=== PATIENT | male | born 1955 | race Caucasian/White ===

== ENCOUNTER 2020-03-16 11:26 | Emergency (ER) | payer MEDICARE, OTHER ==
--- NOTE | 2020-03-16 11:41 | ER Document Report ---
ED Medical Screen (RME) - General Chief Complaint: Urinary Problem Stated Complaint: URINARY ISSUE Time Seen by Provider: 03/16/20 11:32 Notes: Patient presents complaining of difficulty voiding for the past 5 days. Patient states that he will only void a little bit each day. Patient states that he has been taking Flomax although is not certain why he is on this. Patient states he may have prostate problems but is not certain. Patient complains of scrotal tenderness. No nausea or vomiting. Patient denies any abdominal tenderness. Patient does complain of lower back pain although denies flank tenderness. Patient does have a history of hypertension and dyslipidemia I have greeted and performed a rapid initial assessment of this patient. A comprehensive ED assessment and evaluation of the patient, analysis of test results and completion of the medical decision making process will be conducted by additional ED providers. - Related Data Allergies/Adverse Reactions: Penicillins Allergy (Verified 03/16/20 11:39) Physical Exam - Vital signs Vitals: Temp Pulse Resp BP Pulse Ox 98.1 F 75 16 177/103 H 98 03/16/20 11:30 03/16/20 11:30 03/16/20 11:30 03/16/20 11:30 03/16/20 11:30 - Back Back: Tender - Lower lumbar paraspinal tenderness. No: CVA tenderness Course - Vital Signs Vital signs: Temp Pulse Resp BP Pulse Ox 98.1 F 75 16 177/103 H 98 03/16/20 11:30 03/16/20 11:30 03/16/20 11:30 03/16/20 11:30 03/16/20 11:30
[2020-03-16 12:17] LABS: ABSOLUTE BASOPHILS # (AUTO) 0.1 10^3/uL (0.0-0.2); ABSOLUTE EOSINOPHILS # (AUTO) 0.1 10^3/uL (0.0-0.6); ABSOLUTE LYMPHOCYTES (AUTO) 1.5 10^3/uL (0.5-4.7); ABSOLUTE MONOCYTES (AUTO) 0.5 10^3/uL (0.1-1.4); ABSOLUTE NEUT (AUTO) 5.3 10^3/uL (1.7-8.2); BASOPHILS % (AUTO) 0.7 % (0-2); EOSINOPHILS % (AUTO) 1.2 % (0-6); HEMATOCRIT 51.5 % (37.9-51.0); HEMOGLOBIN 17.7 g/dL (13.5-17.0); LYMPHOCYTES % (AUTO) 20.2 % (13-45); MEAN CORPUSCULAR HEMOGLOBIN 31.8 pg (27.0-33.4); MEAN CORPUSCULAR HGB CONC 34.3 g/dL (32.0-36.0); MEAN CORPUSCULAR VOLUME 93 fl (80-97); MONOCYTES % (AUTO) 6.5 % (3-13); PLATELET COUNT 264 10^3/uL (150-450); RED BLOOD COUNT 5.56 10^6/uL (4.35-5.55); RED CELL DISTRIBUTION WIDTH 13.3 % (11.5-14.0); SEGMENTED NEUTROPHILS % (AUTO) 71.4 % (42-78); TOTAL CELLS COUNTED % (AUTO) 100 %; WHITE BLOOD COUNT 7.4 10^3/uL (4.0-10.5)
[2020-03-16 12:24] LABS: APPEARANCE,URINE SLIGHTLY-CLOUDY; BILIRUBIN,URINE NEGATIVE (NEGATIVE); COLOR,URINE YELLOW; GLUCOSE, URINE NEGATIVE (NEGATIVE); KETONES,URINE NEGATIVE (NEGATIVE); LEUKOCYTE ESTERASE,URINE MODERATE (NEGATIVE); NITRITE,URINE NEGATIVE (NEGATIVE); PROTEIN,URINE 100 mg/dL (NEGATIVE); URINE SPECIFIC GRAVITY 1.023
[2020-03-16 12:44] LABS: ALBUMIN 4.9 g/dL (3.5-5.0); ALKALINE PHOSPHATASE 112 U/L (38-126); ANION GAP 8 (5-19); ASPARTATE AMINO TRANSFERASE 48 U/L (17-59); BLOOD UREA NITROGEN 11 mg/dL (7-20); CALCIUM 10.1 mg/dL (8.4-10.2); CARBON DIOXIDE 29 mmol/L (22-30); CHLORIDE 103 mmol/L (98-107); GLUCOSE 106 mg/dL (75-110); POTASSIUM 4.8 mmol/L (3.6-5.0); TOTAL PROTEIN 8.3 g/dL (6.3-8.2)
--- NOTE | 2020-03-16 13:30 | RADIOLOGY REPORT (SQ) ---
EXAM DESCRIPTION: U/S SCROTUM W/DOPPLER IMAGES COMPLETED DATE/TIME: 03/16/2020 1:22 pm REASON FOR STUDY: scrotal pain COMPARISON: None. TECHNIQUE: Static and realtime lee scale imaging of the scrotum and testes. Selected color Doppler and spectral images recorded to document blood flow. LIMITATIONS: None. FINDINGS: RIGHT: TESTICLE: Normal size. Normal echotexture. Normal blood flow. No mass. EPIDIDYMIS: Normal. HYDROCELE OR VARICOCELE: No. HERNIA OR EXTRA-TESTICULAR MASS: No. OTHER: No other significant finding. LEFT: TESTICLE: Normal size. Normal echotexture. Normal blood flow. No mass. EPIDIDYMIS: There are small epididymal cysts. HYDROCELE OR VARICOCELE: Small left-sided hydrocele. HERNIA OR EXTRA-TESTICULAR MASS: No. OTHER: No other significant finding. IMPRESSION: Small left-sided hydrocele. No evidence of torsion. TECHNICAL DOCUMENTATION: JOB ID: [id number] [employer]- All Rights Reserved Reading location - IP/workstation name: [email or web address]
--- NOTE | 2020-03-16 13:31 | RADIOLOGY REPORT (SQ) ---
EXAM DESCRIPTION: U/S RETROPERITON (RENAL/AORTA) IMAGES COMPLETED DATE/TIME: 03/16/2020 1:22 pm REASON FOR STUDY: Urinary retention COMPARISON: None. TECHNIQUE: Dynamic and static grayscale images acquired of the kidneys and bladder and recorded on P ACS. Additional selected color Doppler and spectral images recorded. LIMITATIONS: None. FINDINGS: RIGHT KIDNEY: The right kidney measures 12.4 cm in length. Normal echogenicity. No so lid or suspicious masses. No hydronephrosis. No calcifications. LEFT KIDNEY: The left kidney measures 12.5 cm in length. Normal echogenicity. No solid or suspic ious masses. No hydronephrosis. No calcifications. BLADDER: Bladder stone is noted. OTHER FINDINGS: No other significant finding. IMPRESSION: No hydronephrosis. Bladder stone is noted. TECHNICAL DOCUMENTATION: JOB ID: [id number] 2010 [employer]- All Rights Reserved Reading location - IP/workstation name: [email or web address]
--- NOTE | 2020-03-16 14:25 | ER Document Report ---
ED GI/ - General Chief Complaint: Urinary Problem Stated Complaint: URINARY ISSUE Time Seen by Provider: 03/16/20 11:32 [facility]: [facility] [[facility]] - Follow up as needed Notes: Patient is a 64-year-old male with a history of hypertension and hyperlipidemia who presents to the emergency department with a chief complaint of urinary symptoms. Patient reports over the past 5 days he has had urinary frequency. He states that he will lew to the bathroom but only able to urinate a small amount. Patient reports he has not had a fever but has had low back pain. Patient reports over the past year he has been diagnosed and treated for urinary tract infection, with the last antibiotic dose in October. Patient was placed on Flomax for similar symptoms in October by the [facility] due to possible prostate enlargement. Patient reports these not helping with symptoms. Patient denies testicular swelling or pain. - Related Data Allergies/Adverse Reactions: Penicillins Allergy (Verified 03/16/20 11:39) Past Medical History - General Information source: Patient - Social History Smoking Status: Former Smoker Chew tobacco use (# tins/day): No Frequency of alcohol use: Occasional Family History: None - Past Medical History Cardiac Medical History: Reports: Hx Hypercholesterolemia, Hx Hypertension Pulmonary Medical History: Reports: None EENT Medical History: Reports: None Neurological Medical History: Reports: None Endocrine Medical History: Reports: None Renal/ Medical History: Reports: None Malignancy Medical History: Reports None GI Medical History: Reports: None Musculoskeletal Medical History: Reports None Skin Medical History: Reports None Psychiatric Medical History: Reports: None Traumatic Medical History: Reports: None Infectious Medical History: Reports: None Surgical Hx: Negative Review of Systems - Review of Systems Constitutional: No symptoms reported EENT: No symptoms reported Cardiovascular: No symptoms reported Respiratory: No symptoms reported Gastrointestinal: No symptoms reported Genitourinary: See HPI Male Genitourinary: No symptoms reported Musculoskeletal: No symptoms reported Skin: No symptoms reported Hematologic/Lymphatic: No symptoms reported Neurological/Psychological: No symptoms reported Physical Exam - Vital signs Vitals: Temp Pulse Resp BP Pulse Ox 98.1 F 75 16 177/103 H 98 03/16/20 11:30 03/16/20 11:30 03/16/20 11:30 03/16/20 11:30 03/16/20 11:30 Interpretation: Hypertensive - Notes Notes: GENERAL: Well-appearing, well-nourished and in no acute distress. HEAD: Atraumatic, normocephalic. EYES: Pupils equal round and reactive to light, extraocular movements intact, sclera anicteric, conjunctiva are normal. ENT: Nares patent, oropharynx clear without exudates. Moist mucous membranes. NECK: Normal range of motion, supple without lymphadenopathy or JVD. LUNGS: Breath sounds clear to auscultation bilaterally and equal. No wheezes rales or rhonchi. HEART: Regular rate and rhythm without murmurs, rubs or gallops. ABDOMEN: Soft, round, nontender, normoactive bowel sounds. No guarding, no rebound. No masses appreciated. BACK: No cervical, thoracic, lumbar midline tenderness. No saddle anesthesia, normal distal neurovascular exam. GENITOURINARY: Deferred. EXTREMITIES: Normal range of motion, no pitting or edema. No clubbing or cyanosis. NEUROLOGICAL: Cranial nerves II through XII grossly intact. Normal speech, normal gait. PSYCH: Normal mood, normal affect. SKIN: Warm, Dry, normal turgor, no rashes or lesions noted. Course - Re-evaluation Re-evalutation: 03/16/20 14:23 Patient was noted to have a urinary tract infection, patient states this is his third urinary tract infection within the past year. Patient had not been treated with antibiotics for his infection in the past month. Patient was also noted to have a bladder stone. Plan is to BladderScan the patient. Patient to follow-up with the [facility] as well as urology. 03/16/20 15:57 298 mL's of urine within the bladder. Patient has been able to urinate about 50 to 100 cc, intermittently. Plan is to discharge the patient - Vital Signs Vital signs: Temp Pulse Resp BP Pulse Ox 98.1 F 75 16 177/103 H 98 03/16/20 11:39 03/16/20 11:30 03/16/20 11:30 03/16/20 11:30 03/16/20 11:30 - Laboratory Result Diagrams: 03/16/20 11:50 03/16/20 11:50 Laboratory results interpreted by me: 03/16/20 03/16/20 03/16/20 11:50 11:50 11:50 RBC 5.56 H Hgb 17.7 H Hct 51.5 H ALT 51 H Total Protein 8.3 H Urine Protein 100 H Urine Blood MODERATE H Urine Urobilinogen 4.0 H Ur Leukocyte Esterase MODERATE H 03/16/20 14:23 Patient does not have leukocytosis, significant anemia or alteration electrolytes. Patient urinalysis shows moderate leukocytes with 107 WBCs. Laboratory 03/16/20 03/16/20 03/16/20 11:50 11:50 11:50 WBC 7.4 RBC 5.56 H Hgb 17.7 H Hct 51.5 H MCV 93 MCH 31.8 MCHC 34.3 RDW 13.3 Plt Count 264 Lymph % (Auto) 20.2 [place] % (Auto) 6.5 Eos % (Auto) 1.2 Baso % (Auto) 0.7 Absolute Neuts (auto) 5.3 Absolute Lymphs (auto) 1.5 Absolute Monos (auto) 0.5 Absolute Eos (auto) 0.1 Absolute Basos (auto) 0.1 Seg Neutrophils % 71.4 Sodium 139.5 Potassium 4.8 Chloride 103 Carbon Dioxide 29 Anion Gap 8 BUN 11 Creatinine 1.00 Est GFR ( Amer) > 60 Est GFR (MDRD) Non-Af > 60 Glucose 106 Calcium 10.1 Total Bilirubin 1.0 Direct Bilirubin 0.0 Neonat Total Bilirubin Not Reportable Neonat Direct Bilirubin Not Reportable Neonat Indirect Bili Not Reportable AST 48 ALT 51 H Alkaline Phosphatase 112 Total Protein 8.3 H Albumin 4.9 Urine Color YELLOW Urine Appearance SLIGHTLY-CLOUDY Urine pH 6.0 Ur Specific [place] 1.023 Urine Protein 100 H Urine Glucose (UA) NEGATIVE Urine Ketones NEGATIVE Urine Blood MODERATE H Urine Nitrite NEGATIVE Urine Bilirubin NEGATIVE Urine Urobilinogen 4.0 H Ur Leukocyte Esterase MODERATE H Urine WBC (Auto) 107 Urine RBC (Auto) 172 Urine Bacteria (Auto) TRACE Squamous Epi Cells Auto 3 Urine Mucus (Auto) MANY Urine Ascorbic Acid NEGATIVE - Diagnostic Test Radiology reviewed: Reports reviewed Radiology results interpreted by me: 03/16/20 14:23 Renal Ultrasound 03/16/20 00:00 IMPRESSION: No hydronephrosis. Bladder stone is noted. Scrotum Ultrasound 03/16/20 11:40 IMPRESSION: Small left-sided hydrocele. No evidence of torsion. Discharge - Discharge Clinical Impression: Bladder stone, Cystitis, Dysuria Condition: Stable Disposition: HOME, SELF-CARE Additional Instructions: *Today using the emergency department for urinary discomfort and difficulty urinating. It was found that you have a urinary tract infection. We will treat you with oral antibiotics. Since you continue to have infections, with this one being the third in the past 9 months it is recommend that you follow-up with urology. Please contact the [facility] in regards to a urology referral. Please return the emergency department if you develop fever, chills, flank pain, inability to urinate or blood and large clots within the urine. *I am prescribing you Cipro. This is an antibiotic. This was the antibiotic that you were prescribed for your first urinary tract infection. Urinary Tract Infection Your evaluation indicates that you have a urinary tract infection. This is due to germs growing in the bladder. This is a common problem. This infection usually responds quickly to antibiotics. Your antibiotic should be taken exactly as prescribed. Drink plenty of fluids -- three to four quarts a day. Occasionally, a bladder anesthetic will be prescribed to help stop the feeling of urgency until the antibiotic has a chance to clear the infection. This may cause your urine to be dark orange. Certain urine infections require a culture. If the doctor obtained a culture, the results will be back in two days. You should call to see if a change in treatment is needed. A repeat urinalysis after you finish treatment is often recommended. The physician will let you know if further testing is required. Call the doctor if you develop fever, chills, flank pain, inability to urinate, or blood in the urine. Prescriptions: Ciprofloxacin HCl [Cipro 500 mg Tablet] 500 mg PO BID #20 tablet Referrals: [facility] [Primary Care Provider] - Follow up as needed
[2020-03-16] MEDS ORDERED: CIPROFLOXACIN HCL 500 MG TABLET PO ONE (16:11)
[2020-03-16 16:25] VITALS: BP 117/66
== END 2020-03-16 16:22 | disposition home or self-care (01) ==
LOC: ER 11:26
DX: N21.0 Calculus in bladder (principal); N30.91 Cystitis, unspecified with hematuria; N43.3 Hydrocele, unspecified; R30.0 Dysuria; E78.00 Pure hypercholesterolemia, unspecified; I10 Essential (primary) hypertension; Z88.0 Allergy status to penicillin; Z87.440 Personal history of urinary (tract) infections
CPT/HCPCS: 99284; 36415; 87086; 85025; 80053; 81001; 76770; 76870; 93976; A9270

== ENCOUNTER → 2020-09-03 | Outpatient (CLI) | payer OTHER ==
--- NOTE | 2020-09-03 14:01 | RADIOLOGY REPORT (SQ) ---
EXAM DESCRIPTION: CT ABD/PELVIS NO ORAL OR IV IMAGES COMPLETED DATE/TIME: 09/03/2020 1:22 pm REASON FOR STUDY: R/O BLADDER STONE COMPARISON: None. TECHNIQUE: CT scan of the abdomen and pelvis performed without intravenous or oral contrast. Images reviewed with lung, soft tissue, and bone windows. Reconstructed coronal and sagittal MPR images revi ewed. All images stored on PACS. All CT scanners at this facility use dose modulation, iterative reconstruction, and/or weight based d osing when appropriate to reduce radiation dose to as low as reasonably achievable (ALARA). [facility]: Dose Right [facility]: CareDose [facility]: Dose Right [facility]: Teradose 4D [facility]: Smart [employer] RADIATION DOSE: CT Rad equipment meets quality standard of care and radiation dose reduction techniq ues were employed. CTDIvol: 22.3 mGy. DLP: 1503 mGy-cm.mGy. LIMITATIONS: None. FINDINGS: LOWER CHEST: Several old right posterior rib fractures. NON-CONTRASTED LIVER, SPLEEN, ADRENALS: Evaluation limited by lack of IV contrast. No identified sign ificant masses. PANCREAS: No masses. No peripancreatic inflammatory changes. GALLBLADDER: No identified stones by CT criteria. No inflammatory changes to suggest cholecystitis. RIGHT KIDNEY AND URETER: No suspicious masses. Assessment limited by lack of IV contrast. No signif icant calcifications. No hydronephrosis or hydroureter. LEFT KIDNEY AND URETER: No suspicious masses. Assessment limited by lack of IV contrast. No signifi cant calcifications. No hydronephrosis or hydroureter. AORTA AND RETROPERITONEUM: No aneurysm. No retroperitoneal masses or adenopathy. BOWEL AND PERITONEAL CAVITY: Diverticulosis descending and sigmoid colon. No obvious masses or infla mmatory changes. No free fluid. APPENDIX: Normal. PELVIS, BLADDER, AND ABDOMINAL WALL:2.3 cm stone in the urinary bladder. 514 HU. BONES: Nothing acute. OTHER: No other significant finding. IMPRESSION: 2.3 cm bladder calculus. No renal or ureteral calculi. COMMENT: Quality ID # [id number]: Final reports with documentation of one or more dose reduction techniques (e.g., Automated exposure control, adjustment of the mA and/or kV according to patient size, use of iterative reconstruction technique) TECHNICAL DOCUMENTATION: JOB ID: [id number] [employer]- All Rights Reserved Reading location - IP/workstation name: [email or web address]
== END ==
LOC: RAD 13:10
DX: K57.30 Diverticulosis of large intestine without perforation or abscess without bleeding (principal); N21.0 Calculus in bladder; N39.8 Other specified disorders of urinary system
CPT/HCPCS: 74176